=== PATIENT | female | born 1970 | race Caucasian/White ===

== ENCOUNTER 2022-08-31 23:13 | Emergency (ER) | payer OTHER ==
[~2022-08-31] VITALS: Ht 162.6 cm; Wt 83.9 kg
[~2022-08-31 23:13] MED LIST: IBUP-1017 PO
[2022-08-31 23:28] VITALS: BP_SYST 125
[2022-09-01] MEDS: KETOROLAC TROMETHAMINE 60 MG/2 ML VIAL IM ONE (00:37)
[2022-09-01 00:53] LABS: BILIRUBIN,URINE NEGATIVE (NEGATIVE); CLARITY/URINE CLEAR (CLEAR); COLOR,URINE YELLOW (YELLOW); GLUCOSE,URINE NEGATIVE (NEGATIVE); KETONES,URINE NEGATIVE (NEGATIVE); LEUKOCYTE ESTERASE ,URINE NEGATIVE (NEGATIVE); NITRITE, URINE NEGATIVE (NEGATIVE); PROTEIN URINE NEGATIVE (NEGATIVE); UROBILINOGEN,URINE 0.2 (0.2-1.0)
[2022-09-01 00:54] LABS: BLOOD, URINE TRACE (NEGATIVE)
[2022-09-01 00:56] LABS: BACTERIA,URINE None Seen /HPF (None Seen); MUCUS,URINE None Seen /LPF (None Seen); RBC,URINE 0-3 /HPF (0-3); WBC,URINE NONE SEEN /HPF (0-3)
[2022-09-01] MEDS: ONDANSETRON 4 MG ODT TAB PO ONE (01:36)
[2022-09-01] MEDS ORDERED: MORPHINE 4 MG INJ. 4 MG/ML VIAL IVP ONE (02:30)
[2022-09-01] MEDS ORDERED: ONDANSETRON HCL 4 MG/2 ML VIAL IVP ONE (02:30)
[2022-09-01] MEDS: SUMAtriptan SUCCINATE 6 MG/0.5 ML VIAL SUBCUT ONE (02:37)
[2022-09-01] MEDS: NACL 0.9% 1,000 ML IV ONE (03:11)
[2022-09-01] MEDS: MORPHINE 4 MG INJ. 4 MG/ML VIAL IVP ONE (03:12)
[2022-09-01] MEDS: ONDANSETRON HCL 4 MG/2 ML VIAL IVP ONE (03:12)
[2022-09-01] MEDS ORDERED: IMI50 PO (05:26)
[2022-09-01] MEDS: KETOROLAC TROMETHAMINE 30 MG VIAL IVP ONE (05:27)
[2022-09-01 05:50] VITALS: BP_SYST 125
== END 2022-09-01 05:50 | disposition home or self-care (01) ==
LOC: SED 23:13
DX: G43.909 Migraine, unspecified, not intractable, without status migrainosus (principal); Z88.1 Allergy status to other antibiotic agents; Z88.5 Allergy status to narcotic agent; Z91.040 Latex allergy status; Z79.899 Other long term (current) drug therapy
CPT/HCPCS: 99284; 81000; 93005; 96374; 96375; 96361; 96372; Q0162; J1885 ×2; J2405; J3030; J2270; J7030

== ENCOUNTER 2023-06-20 04:08 | Emergency (ER) | payer OTHER ==
[~2023-06-20] VITALS: Ht 167.6 cm; Wt 90.7 kg
[~2023-06-20 04:08] MED LIST changes: +IMI50 PO
[2023-06-20 04:10] VITALS: BP_SYST 136; PULSE 65; RESP 20; TEMP 97; O2SAT 96
[2023-06-20] MEDS ORDERED: METOCLOPRAMIDE HCL 10 MG/2 ML VIAL IVP ONE (04:45)
[2023-06-20] MEDS ORDERED: DEXAMETHASONE SOD PHOSPHATE 10 MG/ML VIAL IVP ONE (04:45)
[2023-06-20] MEDS ORDERED: NACL 0.9% 1,000 ML IV ONE (04:45)
[2023-06-20] MEDS ORDERED: DIPHENHYDRAMINE INJ 50 MG/ML VIAL IVP ONE (04:45)
[2023-06-20] MEDS ORDERED: KETOROLAC TROMETHAMINE 30 MG VIAL IVP ONE (05:45)
[2023-06-20 06:10] LABS: ANION GAP 7 (5-15); CALCIUM 8.9 mg/dL (8.4-11.0); CHLORIDE 107 mmol/L (98-107); CREATININE 1.01 mg/dL (0.55-1.30); GFR AFRICAN AMERICAN 75 mL/min (>90); GLUCOSE 85 mg/dL (74-106); UREA NITROGEN, BLOOD 18 mg/dL (8-21)
[2023-06-20 06:16] LABS: BASOPHILS # (AUTO) 0.1 K/uL (0.0-0.2); BASOPHILS % (AUTO) 0.8 % (0.0-2.0); EOSINOPHILS # (AUTO) 0.2 K/uL (0.0-0.4); EOSINOPHILS % (AUTO) 2.1 % (0.0-4.0); HEMATOCRIT 37.8 % (36-48); HEMOGLOBIN 12.5 g/dL (12.0-16.0); LYMPHOCYTES # (AUTO) 2.9 K/uL (1.0-5.5); LYMPHOCYTES % (AUTO) 35.8 % (20.5-51.5); MEAN CORPUSCULAR HEMOGLOBIN 32 pg (27-31); MEAN CORPUSCULAR HGB CONC 33 % (32-36); MEAN CORPUSCULAR VOLUME 97 fL (79.0-98.0); MONOCYTES # (AUTO) 0.5 K/uL (0.0-1.0); MONOCYTES % (AUTO) 6.7 % (1.7-9.3); NEUTROPHILS # (AUTO) 4.4 K/uL (1.8-7.7); NEUTROPHILS % (AUTO) 54.6 % (40.0-70.0); PLATELET COUNT (AUTO) 251 K/uL (130-430); RED BLOOD CELL COUNT(AUTO) 3.89 MIL/uL (4.2-6.2); RED CELL DISTRIBUTION WIDTH 14.1 % (9.0-15.0); WHITE BLOOD COUNT (AUTO) 8.1 K/uL (4.8-10.8)
[2023-06-20 06:17] LABS: ALANINE AMINOTRANSFERASE 17 U/L (12-78); ALBUMIN 3.2 g/dL (3.4-4.8); ASPARTATE AMINOTRANSFERASE 13 U/L (10-37); TOTAL BILIRUBIN 0.3 mg/dL (0.0-1.0)
[2023-06-20] MEDS ORDERED: PROMETHAZINE INJ.Non-Formulary 25 MG/ML AMP IM ONE (06:30)
[2023-06-20] MEDS ORDERED: ONDANSETRON HCL 4 MG/2 ML VIAL IVP ONE (06:45)
[2023-06-20 07:55] LABS: BILIRUBIN,URINE NEGATIVE (NEGATIVE); BLOOD, URINE NEGATIVE (NEGATIVE); CLARITY/URINE CLEAR (CLEAR); COLOR,URINE YELLOW (YELLOW); GLUCOSE,URINE NEGATIVE (NEGATIVE); KETONES,URINE NEGATIVE (NEGATIVE); LEUKOCYTE ESTERASE ,URINE NEGATIVE (NEGATIVE); NITRITE, URINE NEGATIVE (NEGATIVE); PROTEIN URINE NEGATIVE (NEGATIVE); UROBILINOGEN,URINE 0.2 (0.2-1.0)
[2023-06-20 07:58] VITALS: BP_SYST 108; PULSE 64; RESP 18; TEMP 98.4; O2SAT 98
== END 2023-06-20 08:01 | disposition home or self-care (01) ==
LOC: SED 04:08
DX: G43.109 Migraine with aura, not intractable, without status migrainosus (principal); R20.2 Paresthesia of skin; H57.11 Ocular pain, right eye; Z88.1 Allergy status to other antibiotic agents; Z88.5 Allergy status to narcotic agent; Z88.8 Allergy status to other drugs, medicaments and biological substances; Z91.040 Latex allergy status; Z79.899 Other long term (current) drug therapy
CPT/HCPCS: 99285; 96374; 96375; 70450; 71045; 96361; 80053; 85025; 84484; 36415; 93005; 76376; 81003; J1200; J1885; J2765; J2405; J2550; J7030; J1100